=== PATIENT | male | born 1970 | race Two or more races ===

== ENCOUNTER 2018-03-30 12:15 | Emergency (ER) | payer OTHER ==
[~2018-03-30] VITALS: Ht 172.7 cm; Wt 85.2 kg
[2018-03-30] MEDS ORDERED: HYDROcodone/APAP 5/325 TABLET ONE (12:43)
[2018-03-30] MEDS ORDERED: HYDROcodone/APAP 5/325 TABLET PO ONE (13:00)
[2018-03-30 13:31] VITALS: BP 124/76
== END 2018-03-30 13:44 | disposition home or self-care (01) ==
LOC: ED 13:35
DX: S42.202A Unspecified fracture of upper end of left humerus, initial encounter for closed fracture (principal); F17.210 Nicotine dependence, cigarettes, uncomplicated; W19.XXXA Unspecified fall, initial encounter; Y93.89 Activity, other specified; Y92.89 Other specified places as the place of occurrence of the external cause; Y99.8 Other external cause status
CPT/HCPCS: 99284